=== PATIENT | male | born 1970 | race Caucasian/White ===

== ENCOUNTER 2020-08-22 13:48 | Emergency (ER) | payer BC ==
[2020-08-22 14:08] VITALS: BP 119/68
== END 2020-08-22 14:59 | disposition home or self-care (01) ==
LOC: ED 13:48
DX: S61.511A Laceration without foreign body of right wrist, initial encounter (principal); W26.8XXA Contact with other sharp object(s), not elsewhere classified, initial encounter; Y99.0 Civilian activity done for income or pay